=== PATIENT | male | born 2000 | race Caucasian/White ===

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

== ENCOUNTER 2021-01-08 21:51 | Emergency (ER) | payer BC, SELFPAY ==
[2021-01-08 21:53] VITALS: BP 121/79; PULSE 58; RESP 18; TEMP 36.8; O2SAT 100
--- NOTE | 2021-01-08 22:51 | ED.WOUNDLAC ---
HPI - Wound/Laceration General Chief Complaint: Wound/Laceration Stated Complaint: face injury Time Seen by Provider: 01/08/21 22:24 Source: patient and family Mode of arrival: ambulatory Limitations: no limitations History of Present Illness HPI narrative: 20-year-old with no major medical problems was brought in by father with complaints of laceration to the chin. Patient states that he was at the store felt hot and passed out for few seconds and hit his chin. He denies any chest pain or shortness of breath or palpitation prior to the event. He states that his does this several years ago. Onset (ago): hour(s) (1) Location: face Place: other (at a store) Patient tetanus UTD: Yes Context: fall Associated symptoms: none Related Data Allergies Allergy/AdvReac Type Severity Reaction Status Date / Time No Known Allergies Allergy Verified 10/14/19 18:42 Review of Systems Review of Systems: All systems reviewed & are unremarkable except as noted in HPI and below Constitutional: Constitutional: Reports no additional constitutional complaints Eyes: Eyes: Reports no additional eye complaints ENT: Reports system reviewed and no additional complaints, except as documented Cardiovascular: Cardiovascular: Reports no additional cardiovascular complaints Respiratory: Respiratory: Reports no additional respiratory complaints Musculoskeletal: Musculoskeletal: Reports no additional musculoskeletal complaints Integumentary/Breasts: Skin/Breast: Reports system reviewed and no additional complaints, except as docu PMFSH Past Medical History Medical History Well adolescent visit Social History Social History Gender identity (if verbalized by the patient): Male Exam Narrative: Exam Narrative: GENERAL: Well-appearing, well-nourished, and in no acute distress. HEAD: Normocephalic, atraumatic. 3 cms laceration on the chin with mild bleeding EYES: PERRLA and EOMI. ENT: Nares clear, no rhinorrhea or epistaxis. Mucous membranes moist. NECK: Supple. CHEST: Clear to auscultation. No respiratory distress. HEART: Regular rate and rhythm. No murmur heard. Normal peripheral pulses. EXTREMITIES: Normal range of motion. No edema. SKIN: Warm, dry, no rash. NEURO: No focal deficits. Alert and oriented x3. PSYCH: Normal mood and affect. Course Vital Signs Vital signs: Vital Signs Temperature 36.8 C 01/08/21 21:53 Pulse Rate 58 L 01/08/21 21:53 Respiratory Rate 18 01/08/21 21:53 Blood Pressure 121/79 01/08/21 21:53 Pulse Oximetry 100 01/08/21 21:53 Temperature 36.8 C 01/08/21 21:53 Pulse Rate 58 L 01/08/21 21:53 Respiratory Rate 18 01/08/21 21:53 Blood Pressure 121/79 01/08/21 21:53 Pulse Oximetry 100 01/08/21 21:53 Procedures Laceration Laceration 1: Date: 01/08/21 Time: 22:56 Site: face (chin ) Size (cm): 3 Description: linear Depth: simple, single layer Local Anesthetic: lidocaine 1% and with epi Amount of anesthesia used (mL): 5 Pre-repair: irrigated ====== Skin Level ====== Skin layer closed with: nylon Size (cm): 4-0 Number of sutures: 10 Technique: running ====== Subcutaneous Layer ====== ====== Muscle Layer ====== ====== Tendon Layer ====== Discharge Plan Discharge Clinical Impression: Fainting spell Laceration of chin Qualifiers: Encounter type: initial encounter Qualified Code(s): S01.81XA - Laceration without foreign body of other part of head, initial encounter Patient Disposition: Home, Self-Care Condition: Stable Instructions: Antibiotic Form, Laceration (ED) Additional Instructions: Sutures off 7 to 10 days ., watch for infection , take Tylenol or Motrin for pain Follow-up/Referrals: Dc Mohan MD [Primary Care Provider] - Time
== END 2021-01-08 23:11 | disposition home or self-care (01) ==
PROVIDERS: Emergency Provider Family Medicine; PCP Emergency Medicine
DX: S01.81XA Laceration without foreign body of other part of head, initial encounter (principal); W18.39XA Other fall on same level, initial encounter
CPT/HCPCS: 12013; 99282